=== PATIENT | female | born 1975 | race Caucasian/White ===

== ENCOUNTER 2017-08-21 17:30 | Emergency (ER) | payer BC ==
[2017-08-21 17:56] LABS: BASOPHILS % (AUTO) 0.3 % (0.0-5.0); HEMATOCRIT 41.2 % (36-48); LYMPHOCYTES % (AUTO) 28.1 % (21.0-51.0); MEAN CORPUSCULAR HEMOGLOBIN 31.5 pg (27.0-33.0); MEAN CORPUSCULAR HGB CONC 35.5 g/dL (32.0-36.0); MEAN CORPUSCULAR VOLUME 88.7 fL (79-99); NEUTROPHILS % (AUTO) 64.6 % (40.0-77.0); NUCLEATED RED BLOOD CELLS 0.1 % (0.0-0.19); PLATELET COUNT (AUTO) 260 K/uL (130-400); RED BLOOD CELL COUNT(AUTO) 4.65 MIL/uL (4.00-5.50); WHITE BLOOD COUNT (AUTO) 8.3 K/uL (4.8-10.8)
[2017-08-21 17:59] LABS: HCG,QUAL RESULT NEGATIVE (NEGATIVE)
[2017-08-21 18:00] LABS: APPEARANCE,URINE Clear (CLEAR); BILIRUBIN,URINE Negative (NEGATIVE); COLOR,URINE Yellow (YELLOW); GLUCOSE, URINE (UA) Negative (NEGATIVE); KETONES,URINE 40 mg/dL (NEGATIVE); LEUKOCYTE ESTERASE ,URINE Negative (NEGATIVE); NITRATE,URINE Negative (NEGATIVE); OCCULT BLOOD,URINE Negative (NEGATIVE); PH,URINE 6.5 (5.0-8.0); PROTEIN,URINE Negative (NEGATIVE); UROBILINOGEN,URINE 0.2 mg/dL (0.2-1.0)
[2017-08-21] MEDS ORDERED: SODIUM CHLORIDE 0.9% 1000ML 1,000 ML IV ONE (18:05)
[2017-08-21] MEDS ORDERED: MORPHINE SULFATE 4 MG/1ML SYG ONE (18:05)
[2017-08-21] MEDS ORDERED: ONDANSETRON HCL 4 MG/2 ML VIAL ONE (18:05)
[2017-08-21 18:17] LABS: CREATININE 0.7 mg/dL (0.5-1.5); POTASSIUM 3.5 mmol/L (3.5-5.1)
[2017-08-21 18:21] LABS: BILIRUBIN,TOTAL 1.4 mg/dL (0.2-1.0); TOTAL PROTEIN, SERUM 7.6 g/dL (6.0-8.3)
[2017-08-21] MEDS ORDERED: DICYCLOMINE HCL 10 MG/ML 2ML AMP IM ONE (18:41)
[2017-08-21] MEDS ORDERED: IOPAMIDOL-370 75 ML VIAL IV ONE (18:43)
[2017-08-21] MEDS ORDERED: PROCHLORPERAZINE EDISYLATE 10 MG/2 ML VIAL ONE (20:21)
== END 2017-08-21 21:18 | disposition home or self-care (01) ==
LOC: EDH 17:30
DX: R10.12 Left upper quadrant pain (principal)
CPT/HCPCS: 36415; 74177; 80053; 81003; 81025; 83690; 84484; 85025; 96361; 96372; 96374; 96375; 99285; J0500; J0780; J2270; J2405; J7030; Q9967; 93005